=== PATIENT | female | born 1990 ===

== ENCOUNTER 2020-06-29 22:30 | Inpatient (IN) | payer SELFPAY ==
[2020-06-29] MEDS ORDERED: Lidocaine 1% 50 ML MDV INJECT PRN (22:43)
[2020-06-29] MEDS ORDERED: Tranexamic Acid 1,000 MG in Sodium Chloride 0.9% 100 ML IV PRN (22:43)
[2020-06-29] MEDS ORDERED: Water For Irrigation,Sterile 1,000 ML Container IRR PRN (22:43)
[2020-06-29] MEDS ORDERED: Misoprostol 200 MCG Tab PO PRN (22:43)
[2020-06-29] MEDS ORDERED: Terbutaline 1 MG/ML SDV SUBCUT PRN (22:43)
[2020-06-29] MEDS ORDERED: Carboprost Tromethamine 250 MCG/1 ML Amp IM PRN (22:43)
[2020-06-29] MEDS ORDERED: Sodium Chloride 0.9% 10 ML Syringe FLUSH PRN (22:43)
[2020-06-29] MEDS ORDERED: Methylergonovine 0.2 MG/1 ML Amp IM PRN (22:43)
[2020-06-29] MEDS ORDERED: Sodium Chloride 0.9% 2.5 ML Syringe FLUSH PRN (22:43)
[2020-06-29] MEDS ORDERED: Ondansetron 4 MG/2 ML SDV IVPUSH PRN (22:43)
[2020-06-29] MEDS ORDERED: Sodium Chloride 0.9% 10 ML SDV IV PRN (22:43)
[2020-06-29] MEDS ORDERED: Oxytocin/0.9 % Sodium Chloride 30 UNIT/500 ML BAG IV SCH ×2 (22:45)
[2020-06-29] MEDS: Lactated Ringers 1,000 ML IV SCH (23:00)
[2020-06-29] MEDS ORDERED: Misoprostol 25 MCG (1/4 of 100 MCG) Tab PO SCH (23:30)
[2020-06-29] MEDS ORDERED: Misoprostol 50 MCG (1/2 of 100 MCG) Tab PO SCH (23:30)
[2020-06-29] MEDS ORDERED: Misoprostol 25 MCG (1/4 of 100 MCG) Tab VAG PRN (23:30)
[2020-06-30] MEDS: Nalbuphine 10 MG/1 ML Vial IVPUSH PRN ×2 (01:38→05:41)
[2020-06-30] MEDS ORDERED: Misoprostol 25 MCG (1/4 of 100 MCG) Tab VAG PRN (03:00)
--- NOTE | 2020-06-30 05:11 | PCM.LDHP ---
L&D History of Present Illness - General Date of Service: 06/30/20 Admit Problem/Dx: Patient Status Order with Admit Dx/Problem 06/29/20 22:44 Patient Status [ADT] Routine Admission Diagnosis/Problem Admission Diagnosis/Problem Planned Source of Information: Patient History Limitations: Reports: No Limitations - History of Present Illness Pain Score: 8 Improves with: Reports: None Worsens with: Reports: None Associated Symptoms: Reports: N - Related Data Allergies/Adverse Reactions: Allergies Allergy/AdvReac Type Severity Reaction Status Date / Time wasp allergy Allergy Hives Uncoded 06/30/20 01:06 Home Medications: Home Meds Doxylamine Succinate/Vit B6 [Diclegis Dr 10-10 mg Tablet] 1 tab PO ASDIRECTED 06/27/20 [History] No122/Iron/Folic Acid [ Multi Tablet] 1 each PO DAILY 06/27/20 [History] Past Medical History Gastrointestinal History: Reports: Other (See Below) Other Gastrointestinal History: gastritis 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: - Infectious Disease History Infectious Disease History: Reports: Chicken Pox Social & Family History - Family History Family Medical History: Noncontributory - Tobacco Use Smoking Status *Q: Never Smoker Second Hand Smoke Exposure: No H&P Review of Systems - Review of Systems: Review Of Systems: See Below General: Reports: No Symptoms HEENT: Reports: No Symptoms Pulmonary: Reports: No Symptoms Cardiovascular: Reports: No Symptoms Gastrointestinal: Reports: No Symptoms Genitourinary: Reports: No Symptoms Musculoskeletal: Reports: No Symptoms Skin: Reports: No Symptoms Psychiatric: Reports: No Symptoms Neurological: Reports: No Symptoms Hematologic/Lymphatic: Reports: No Symptoms Immunologic: Reports: No Symptoms L&D Exam - Exam Exam: See Below - Vital Signs Weight: 81.193 kg - OB Specific Contraction Intensity: Moderate Movement: Active Heart Tones: Present Presentation: Vertex - Hanson Score Hanson Score Cervix Position: Anterior Hanson Score Effacement: >80% Hanson Score Dilation: 3-4 cm Hanson Score 's Station: -2 - Exam General: Alert, Oriented HEENT: PERRLA, Conjunctiva Clear, EACs Clear, EOMI, Hearing Intact, Mucosa Moist & [place], Nares Patent, Normal Nasal Septum, Posterior Pharynx Clear, TMs Clear Neck: Supple, Trachea Midline Lungs: Clear to Auscultation, Normal Respiratory Effort Cardiovascular: Regular Rate, Regular Rhythm GI/Abdominal Exam: Normal Bowel Sounds, Soft, Non-Tender, No Organomegaly, No Distention, No Abnormal Bruit, No Mass, Pelvis Stable Rectal Exam: Normal Exam, Normal Rectal Tone Genitourinary: Normal external exam, Normal bimanual exam, Normal speculum exam Back Exam: Normal Inspection, Full Range of Motion Extremities: Normal Inspection, Normal Range of Motion, Non-Tender, No Pedal Edema, Normal Capillary Refill Skin: Warm, Dry, Intact Neurological: Cranial Nerves Intact, Reflexes Equal Bilateral Psychiatric: Alert, Normal Affect, Normal Mood - Patient Data Lab Results Last 24 hrs: Laboratory Results - last 24 hr 06/29/20 06/29/20 06/29/20 Range/Units 22:38 22:58 22:58 WBC 10.26 (4.0-11.0) K/uL RBC 4.33 (4.30-5.90) M/uL Hgb 12.4 (12.0-16.0) g/dL Hct 36.8 (36.0-46.0) % MCV 85.0 (80.0-98.0) fL MCH 28.6 (27.0-32.0) pg MCHC 33.7 (31.0-37.0) g/dL RDW Std Deviation 40.8 (28.0-62.0) fl RDW Coeff of Mary 13 (11.0-15.0) % Plt Count 226 (150-400) K/uL MPV 10.80 (7.40-12.00) fL Nucleated RBC % 0.0 /100WBC Nucleated RBCs # 0 K/uL COVID-19 (NIGHAT) NEGATIVE (NEGATIVE) Blood Type A POSITIVE Antibody Screen NEGATIVE Result Diagrams: 06/29/20 22:58 Problem List Initiated/Reviewed/Updated: Yes Orders Last 24hrs: Active Orders 24 hr Category Date Time Status Patient Status [ADT] Routine ADT 06/29/20 22:44 Active Bedrest Bathroom Privileges [RC] ASDIRECTED Care 06/29/20 22:44 Active Communication Order [RC] ASDIRECTED Care 06/29/20 22:44 Active Communication Order [RC] ASDIRECTED Care 06/29/20 22:44 Active Communication Order [RC] ASDIRECTED Care 06/29/20 22:44 Active Heart Tones [RC] CONTINUOUS Care 06/29/20 22:44 Active Non Stress Test [RC] PER UNIT ROUTINE Care 06/29/20 22:44 Active May Shower [RC] ASDIRECTED Care 06/29/20 22:44 Active Notify Provider [RC] PRN Care 06/29/20 22:44 Active Notify Provider [RC] PRN Care 06/29/20 22:44 Active Notify Provider [RC] PRN Care 06/29/20 22:44 Active Notify Provider [RC] STAT Care 06/29/20 22:44 Active Oxygen Therapy [RC] ASDIRECTED Care 06/29/20 22:44 Active Up ad Cathy [RC] ASDIRECTED Care 06/29/20 22:44 Active Vaginal Exam [RC] PRN Care 06/29/20 22:44 Active Vaginal Exam [RC] PRN Care 06/29/20 22:44 Active Vital Signs [RC] PER UNIT ROUTINE Care 06/29/20 22:44 Active Vital Signs [RC] PER UNIT ROUTINE Care 06/29/20 22:44 Active Regular Diet [DIET] Diet 06/30/20 Breakfast Active RPR (SYPHILIS SERO) W/ RFLX [REF] Routine Lab 06/29/20 22:58 Received Carboprost Tromethamine [Hemabate DS] Med 06/29/20 22:43 Active 250 mcg IM ASDIRECTED PRN Lactated Ringers [Ringers, Lactated] 1,000 ml Med 06/29/20 22:45 Active IV ASDIRECTED Lidocaine 1% [Xylocaine 1%] Med 06/29/20 22:43 Active 50 ml INJECT ONETIME PRN Methylergonovine [Methergine] Med 06/29/20 22:43 Active 0.2 mg IM ASDIRECTED PRN Nalbuphine [Nubain] Med 06/29/20 22:43 Active 10 mg IVPUSH Q1H PRN Ondansetron [Zofran] Med 06/29/20 22:43 Active 4 mg IVPUSH Q6H PRN Oxytocin/0.9 % Sodium Chloride [Oxytocin 30 Unit/500 ML Med 06/29/20 22:45 Active -NS] 30 unit in 500 ml IV TITRATE Oxytocin/0.9 % Sodium Chloride [Oxytocin 30 Unit/500 ML Med 06/29/20 22:45 Active -NS] 30 unit in 500 ml IV TITRATE Sodium Chloride 0.9% [Normal Saline] Med 06/29/20 22:43 Active 10 ml IV ASDIRECTED PRN Sodium Chloride 0.9% [Saline Flush] Med 06/29/20 22:43 Active 10 ml FLUSH ASDIRECTED PRN Sodium Chloride 0.9% [Saline Flush] Med 06/29/20 22:43 Active 2.5 ml FLUSH ASDIRECTED PRN Terbutaline [Brethine] Med 06/29/20 22:43 Active 0.25 mg SUBCUT ASDIRECTED PRN Tranexamic Acid [Cyklokapron] 1,000 mg Med 06/29/20 22:43 Active Sodium Chloride 0.9% [Normal Saline] 100 ml IV ONETIME Water For Irrigation,Sterile [Sterile Water for Med 06/29/20 22:43 Active Irrigation] 1,000 ml IRR ASDIRECTED PRN miSOPROStoL [Cytotec] Med 06/29/20 22:43 Active 200 mcg PO ONETIME PRN miSOPROStoL [Cytotec] Med 06/29/20 23:30 Active 25 mcg PO Q4H miSOPROStoL [Cytotec] Med 06/29/20 23:30 Active 25 mcg VAG ONETIME PRN miSOPROStoL [Cytotec] Med 06/30/20 03:00 Active 25 mcg VAG Q4H PRN Scalp Electrode [WOMSER] Per Unit Routine Oth 06/29/20 22:44 Ordered Medication Administration Instruction [OM.PC] Q3H Oth 06/29/20 22:45 Ordered Peripheral IV Insertion Adult [OM.PC] Routine Oth 06/29/20 22:44 Ordered Resuscitation Status Routine Resus Stat 06/29/20 22:43 Ordered Medication Orders Carboprost Tromethamine (Hemabate Ds) 250 mcg IM ASDIRECTED PRN PRN Reason: Post Hemorrhage Oxytocin/Sodium Chloride (Oxytocin 30 Unit/500 Ml-Ns) 30 unit in 500 mls @ 2 mls/hr IV TITRATE RISSA; Protocol Lactated Ringer's (Ringers, Lactated) 1,000 mls @ 150 mls/hr IV ASDIRECTED RISSA Last Infusion: 06/29/20 23:59 Dose: 0 mls/hr Documented by: Admin: 06/29/20 23:00 Dose: 500 mls/hr Documented by: VIVIENNE Oxytocin/Sodium Chloride (Oxytocin 30 Unit/500 Ml-Ns) 30 unit in 500 mls @ 500 mls/hr IV TITRATE REPLACED BY [facility] Tranexamic Acid 1,000 mg/ (Sodium Chloride) 110 mls @ 660 mls/hr IV ONETIME PRN PRN Reason: Bleeding Lidocaine HCl (Xylocaine 1%) 50 ml INJECT ONETIME PRN PRN Reason: Laceration repair Methylergonovine Maleate (Methergine) 0.2 mg IM ASDIRECTED PRN PRN Reason: Post Hemorrhage Misoprostol (Cytotec) 25 mcg VAG ONETIME PRN PRN Reason: Cervical Ripening Last Admin: 06/29/20 23:37 Dose: 25 mcg Documented by: VIVIENNE Misoprostol (Cytotec) 25 mcg VAG Q4H PRN PRN Reason: Cervical Ripening Misoprostol (Cytotec) 200 mcg PO ONETIME PRN PRN Reason: Post Hemorrhage Misoprostol (Cytotec) 25 mcg PO Q4H REPLACED BY [facility] Last Admin: 06/29/20 23:32 Dose: 25 mcg Documented by: VIVIENNE Nalbuphine HCl (Nubain) 10 mg IVPUSH Q1H PRN PRN Reason: Pain (severe 7-10) Last Admin: 06/30/20 01:38 Dose: 10 mg Documented by: VIVIENNE Ondansetron HCl (Zofran) 4 mg IVPUSH Q6H PRN PRN Reason: Nausea/Vomiting Sodium Chloride (Saline Flush) 10 ml FLUSH ASDIRECTED PRN PRN Reason: Keep Vein Open Sodium Chloride (Saline Flush) 2.5 ml FLUSH ASDIRECTED PRN PRN Reason: Keep Vein Open Sodium Chloride (Normal Saline) 10 ml IV ASDIRECTED PRN PRN Reason: IV Use Sterile Water (Sterile Water For Irrigation) 1,000 ml IRR ASDIRECTED PRN PRN Reason: delivery Terbutaline Sulfate (Brethine) 0.25 mg SUBCUT ASDIRECTED PRN PRN Reason: Tacysystole
[2020-06-30] MEDS ORDERED: Ropivacaine HCl/PF 100 ML ONE (07:30)
[2020-06-30] MEDS ORDERED: fentaNYL 100 MCG/2 ML SDV ONE (07:30)
--- NOTE | 2020-06-30 08:17 | PCM.PREANE ---
Preanesthetic Assessment - Procedure Proposed Procedure: BROOK - Anesthesia/Transfusion/Family Hx Anesthesia History: No Prior Anesthesia Family History of Anesthesia Reaction: No Transfusion History: No Prior Transfusion(s) Anesthesia/Transfusion Comment: Pt and s/o report patient has never had anesthesia - Review of Systems General: No Symptoms Pulmonary: No Symptoms Cardiovascular: No Symptoms Gastrointestinal: No Symptoms Neurological: No Symptoms Other: Reports: None - Physical Assessment NPO Status Date: 06/30/20 (Clear liquids okay) NPO Status Time: 07:15 Height: 1.65 m Weight: 81.193 kg ASA Class: 2 Mental Status: Alert & Oriented x3 Dentition: Reports: Normal Dentition Thyro-Mental Finger Breadths: 3 Mouth Opening Finger Breadths: 4 ROM/Head Extension: Full Lungs: Normal Respiratory Effort Cardiovascular: Regular Rate, Regular Rhythm - Lab Values: Laboratory Last Values WBC 10.26 K/uL (4.0-11.0) 06/29/20 22:58 RBC 4.33 M/uL (4.30-5.90) 06/29/20 22:58 Hgb 12.4 g/dL (12.0-16.0) 06/29/20 22:58 Hct 36.8 % (36.0-46.0) 06/29/20 22:58 MCV 85.0 fL (80.0-98.0) 06/29/20 22:58 MCH 28.6 pg (27.0-32.0) 06/29/20 22:58 MCHC 33.7 g/dL (31.0-37.0) 06/29/20 22:58 RDW Std Deviation 40.8 fl (28.0-62.0) 06/29/20 22:58 RDW Coeff of Mary 13 % (11.0-15.0) 06/29/20 22:58 Plt Count 226 K/uL (150-400) 06/29/20 22:58 MPV 10.80 fL (7.40-12.00) 06/29/20 22:58 Nucleated RBC % 0.0 /100WBC 06/29/20 22:58 Nucleated RBCs # 0 K/uL 06/29/20 22:58 COVID-19 (NIGHAT) NEGATIVE (NEGATIVE) 06/29/20 22:38 Blood Type A POSITIVE 06/29/20 22:58 Antibody Screen NEGATIVE 06/29/20 22:58 - Allergies Allergies/Adverse Reactions: Allergies Allergy/AdvReac Type Severity Reaction Status Date / Time wasp allergy Allergy Hives Uncoded 06/30/20 01:06 - Acknowledgements Anesthesia Type Planned: Epidural (Risks/benefits/alternatives/procedure discussed with patient and S.O.. S.O. acted as refueling ramp attendant, and RECORD FILING CLERK with limited finnish verified that patient felt comfortable with this. All questions answered and concerns addressed prior to procedure. 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: - Infectious Disease History Infectious Disease History: Reports: Chicken Pox - SUBSTANCE USE Smoking Status *Q: Never Smoker Second Hand Smoke Exposure: No - HOME MEDS Home Medications: Home Meds Doxylamine Succinate/Vit B6 [Dicwesleygis Dr 10-10 mg Tablet] 1 tab PO ASDIRECTED 06/27/20 [History] No122/Iron/Folic Acid [ Multi Tablet] 1 each PO DAILY 06/27/20 [History] - CURRENT (IN HOUSE) MEDS Current Meds: Current Medications Carboprost Tromethamine (Hemabate Ds) 250 mcg IM ASDIRECTED PRN PRN Reason: Post Hemorrhage Oxytocin/Sodium Chloride (Oxytocin 30 Unit/500 Ml-Ns) 30 unit in 500 mls @ 2 mls/hr IV TITRATE RISSA; Protocol Lactated Ringer's (Ringers, Lactated) 1,000 mls @ 150 mls/hr IV ASDIRECTED RISSA Last Infusion: 06/29/20 23:59 Dose: 0 mls/hr Documented by: Oxytocin/Sodium Chloride (Oxytocin 30 Unit/500 Ml-Ns) 30 unit in 500 mls @ 500 mls/hr IV TITRATE RISSA Tranexamic Acid 1,000 mg/ (Sodium Chloride) 110 mls @ 660 mls/hr IV ONETIME PRN PRN Reason: Bleeding Lidocaine HCl (Xylocaine 1%) 50 ml INJECT ONETIME PRN PRN Reason: Laceration repair Methylergonovine Maleate (Methergine) 0.2 mg IM ASDIRECTED PRN PRN Reason: Post Hemorrhage Misoprostol (Cytotec) 25 mcg VAG ONETIME PRN PRN Reason: Cervical Ripening Last Admin: 06/29/20 23:37 Dose: 25 mcg Documented by: Misoprostol (Cytotec) 25 mcg VAG Q4H PRN PRN Reason: Cervical Ripening Misoprostol (Cytotec) 200 mcg PO ONETIME PRN PRN Reason: Post Hemorrhage Misoprostol (Cytotec) 25 mcg PO Q4H RISSA Last Admin: 06/29/20 23:32 Dose: 25 mcg Documented by: Ondansetron HCl (Zofran) 4 mg IVPUSH Q6H PRN PRN Reason: Nausea/Vomiting Sodium Chloride (Saline Flush) 10 ml FLUSH ASDIRECTED PRN PRN Reason: Keep Vein Open Sodium Chloride (Saline Flush) 2.5 ml FLUSH ASDIRECTED PRN PRN Reason: Keep Vein Open Sodium Chloride (Normal Saline) 10 ml IV ASDIRECTED PRN PRN Reason: IV Use Sterile Water (Sterile Water For Irrigation) 1,000 ml IRR ASDIRECTED PRN PRN Reason: delivery Terbutaline Sulfate (Brethine) 0.25 mg SUBCUT ASDIRECTED PRN PRN Reason: Tacysystole Discontinued Medications Fentanyl (Sublimaze) Confirm Administered Dose 200 mcg .ROUTE .STK-MED ONE Stop: 06/30/20 07:31 Ropivacaine (Naropin 0.2%) Confirm Administered Dose 100 mls @ as directed .ROUTE .STK-MED ONE Stop: 06/30/20 07:31 Nalbuphine HCl (Nubain) 10 mg IVPUSH Q1H PRN PRN Reason: Pain (severe 7-10) Last Admin: 06/30/20 05:41 Dose: 10 mg Documented by:
[2020-06-30] MEDS: Lactated Ringers 1,000 ML IV SCH ×2 (08:24→10:15)
--- NOTE | 2020-06-30 08:38 | PCM.SN.2 ---
- Free Text/Narrative Note: 06/30/20 @ 0825- Bedside to check on patient and re-assess epidural dermatome level. Pt resting comfortably, level remains T6. BP soft (SBP 80's, MAP 45-50). Pt tilted left, cuff on right arm. HR 60-70's. HR stable per RN. Verbal order for additional 500ml LR bolus. SENIOR SCIENTIST pulled and administered 100mcg phenylephrine IV. BP improving. RN instructed to notify SENIOR SCIENTIST if hypotension recurs or if pt becomes bradycardic.
--- NOTE | 2020-06-30 08:51 | PCM.SN.2 ---
- Free Text/Narrative Note: Re-assessed 06/30/20 @ 0844. Continued to be hypotensive. Treated with 200mcg phenylephrine IV (fluid bolus still infusing). BP rectified (SBP 120's). Remains otherwise asymptomatic. RN instructed to continue Q3min BP measurements, and report hypotension <90 SBP or MAP <55 for >2 measurements.
--- NOTE | 2020-06-30 13:26 | PCM.DEL ---
L & D Note - General Info Date of Service: 06/30/20 Mother's Due Date: 06/22/20 - Delivery Note Labor: Augmented by Oxytocin Cervical Ripening Method: Misoprostil Delivery Outcome: Livebirth Delivery Method: Spontaneous Vaginal Delivery-Single Presentation: Vertex Nuchal Cord: None Anesthesia Type: Epidural Amniotic Fluid Description: Meconium Stained Episiotomy Type: None Laceration: 1st Degree, Labial (right labial, repaired), Perineal (repaired) Suture type: Vicryl Suture size: 3-0 Placenta: Intact, Spontaneous Cord: 3 Vessels Estimated Blood Loss: 500 Resuscitation Needed: No Score 1 min: 9 Score 5 min: 9 Second Stage Interventions: Reports: Second Nurse Assessed Progress of Descent, Second Nurse Reviewed Contraction Pattern, Second Nurse Reviewed Heart Tones, Encouragement Given, Pushing Effectively, Pushing, Pulls Own Legs Back Delivery Comments (Free Text/Narrative):: viable female; epidural for pain relief; head delivered with good pushing, shoulders followed easily after; baby to mom's abdomen skin to skin for assessment; APGARs 9/9; weight pending; placenta delivered grossly intact, pleitez; 3VC; EBL 500 mL; pitocin to IVF; right labial laceration repaired with 3-0 vicryl; 1st degree perineal laceration repaired with 3-0 vicryl; mom and baby left in stable condition with nurse at bedside for assessment - General Info Date of Service: 06/30/20 Admission Dx/Problem (Free Text): Patient Status Order with Admit Dx/Problem 06/29/20 22:44 Patient Status [ADT] Routine Admission Diagnosis/Problem Admission Diagnosis/Problem Planned Functional Status: Reports: Pain Controlled - Review of Systems General: Reports: No Symptoms HEENT: Reports: No Symptoms Pulmonary: Reports: No Symptoms Cardiovascular: Reports: No Symptoms Gastrointestinal: Reports: No Symptoms Genitourinary: Reports: No Symptoms Musculoskeletal: Reports: No Symptoms Skin: Reports: No Symptoms Neurological: Reports: No Symptoms Psychiatric: Reports: No Symptoms - Patient Data Weight - Most Recent: 179 lb Lab Results Last 24 Hours: Laboratory Results - last 24 hr 06/29/20 06/29/20 06/29/20 Range/Units 22:38 22:58 22:58 WBC 10.26 (4.0-11.0) K/uL RBC 4.33 (4.30-5.90) M/uL Hgb 12.4 (12.0-16.0) g/dL Hct 36.8 (36.0-46.0) % MCV 85.0 (80.0-98.0) fL MCH 28.6 (27.0-32.0) pg MCHC 33.7 (31.0-37.0) g/dL RDW Std Deviation 40.8 (28.0-62.0) fl RDW Coeff of Mary 13 (11.0-15.0) % Plt Count 226 (150-400) K/uL MPV 10.80 (7.40-12.00) fL Nucleated RBC % 0.0 /100WBC Nucleated RBCs # 0 K/uL COVID-19 (NIGHAT) NEGATIVE (NEGATIVE) Blood Type A POSITIVE Antibody Screen NEGATIVE Med Orders - Current: Current Medications Carboprost Tromethamine (Hemabate Ds) 250 mcg IM ASDIRECTED PRN PRN Reason: Post Hemorrhage Oxytocin/Sodium Chloride (Oxytocin 30 Unit/500 Ml-Ns) 30 unit in 500 mls @ 2 mls/hr IV TITRATE RISSA; Protocol Last Titration: 06/30/20 12:04 Dose: 4 munits/min, 4 mls/hr Documented by: Lactated Ringer's (Ringers, Lactated) 1,000 mls @ 150 mls/hr IV ASDIRECTED RISSA Last Admin: 06/30/20 10:15 Dose: 999 mls/hr Documented by: Oxytocin/Sodium Chloride (Oxytocin 30 Unit/500 Ml-Ns) 30 unit in 500 mls @ 500 mls/hr IV TITRATE RISSA Tranexamic Acid 1,000 mg/ (Sodium Chloride) 110 mls @ 660 mls/hr IV ONETIME PRN PRN Reason: Bleeding Lidocaine HCl (Xylocaine 1%) 50 ml INJECT ONETIME PRN PRN Reason: Laceration repair Methylergonovine Maleate (Methergine) 0.2 mg IM ASDIRECTED PRN PRN Reason: Post Hemorrhage Misoprostol (Cytotec) 25 mcg VAG ONETIME PRN PRN Reason: Cervical Ripening Last Admin: 06/29/20 23:37 Dose: 25 mcg Documented by: Misoprostol (Cytotec) 25 mcg VAG Q4H PRN PRN Reason: Cervical Ripening Misoprostol (Cytotec) 200 mcg PO ONETIME PRN PRN Reason: Post Hemorrhage Misoprostol (Cytotec) 25 mcg PO Q4H RISSA Last Admin: 06/29/20 23:32 Dose: 25 mcg Documented by: Ondansetron HCl (Zofran) 4 mg IVPUSH Q6H PRN PRN Reason: Nausea/Vomiting Sodium Chloride (Saline Flush) 10 ml FLUSH ASDIRECTED PRN PRN Reason: Keep Vein Open Sodium Chloride (Saline Flush) 2.5 ml FLUSH ASDIRECTED PRN PRN Reason: Keep Vein Open Sodium Chloride (Normal Saline) 10 ml IV ASDIRECTED PRN PRN Reason: IV Use Sterile Water (Sterile Water For Irrigation) 1,000 ml IRR ASDIRECTED PRN PRN Reason: delivery Terbutaline Sulfate (Brethine) 0.25 mg SUBCUT ASDIRECTED PRN PRN Reason: Tacysystole Discontinued Medications Fentanyl (Sublimaze) Confirm Administered Dose 200 mcg .ROUTE .STK-MED ONE Stop: 06/30/20 07:31 Ropivacaine (Naropin 0.2%) Confirm Administered Dose 100 mls @ as directed .ROUTE .STK-MED ONE Stop: 06/30/20 07:31 Nalbuphine HCl (Nubain) 10 mg IVPUSH Q1H PRN PRN Reason: Pain (severe 7-10) Last Admin: 06/30/20 05:41 Dose: 10 mg Documented by: - Exam General: Alert, Oriented, Cooperative, No Acute Distress Lungs: Normal Respiratory Effort Cardiovascular: Regular Rate, Regular Rhythm GI/Abdominal Exam: Soft, Non-Tender (Female) Exam: Normal External Exam Back Exam: Normal Inspection Extremities: Normal Inspection, Non-Tender, No Pedal Edema, Normal Capillary Refill Skin: Warm, Dry, Intact Wound/Incisions: Healing Well Neurological: No New Focal Deficit, Normal Speech, Normal Tone Psy/Mental Status: Alert, Normal Affect, Normal Mood - Problem List & Annotations (1) (spontaneous vaginal delivery) SNOMED Code(s): 853320691 Code(s): O80 - ENCOUNTER FOR FULL-TERM UNCOMPLICATED DELIVERY Status: Acute Priority: High Current Visit: Yes - Problem List Review Problem List Initiated/Reviewed/Updated: Yes - Plan Plan:: Delivery A: viable female; epidural for pain relief; head delivered with good pushing, shoulders followed easily after; APGARs 9/9; weight pending; placenta delivered grossly intact, pleitez; 3VC; EBL 500 mL; pitocin to IVF; right labial laceration repaired with 3-0 vicryl; 1st degree perineal laceration repaired with 3-0 vicryl; mom and baby left in stable condition with nurse at bedside for assessment P: Routine plan of care. Dr. Bishop updated.
[2020-06-30] MEDS ORDERED: Benzocaine/Menthol 20%-0.5% Spray 78 GM Cannister TOP PRN (13:29)
[2020-06-30] MEDS ORDERED: Acetaminophen 500 MG Tab PO PRN ×2 (13:29)
[2020-06-30] MEDS ORDERED: Bisacodyl 10 MG Supp RECTAL PRN (13:29)
[2020-06-30] MEDS ORDERED: Docusate Sodium 100 MG Cap PO PRN (13:29)
[2020-06-30] MEDS ORDERED: oxyCODONE 5 MG Tab PO PRN (13:29)
[2020-06-30] MEDS ORDERED: Ibuprofen 400 MG Tab PO PRN (13:29)
[2020-06-30] MEDS ORDERED: Witch Hazel Medicated Pads 40/Jar TOP PRN (13:29)
[2020-06-30] MEDS ORDERED: Lanolin 100% Cream 7 GM Tube TOP PRN (13:29)
[2020-06-30] MEDS: Ibuprofen 800 MG Tab PO PRN (16:42)
[2020-07-01] MEDS: Ibuprofen 800 MG Tab PO PRN (02:26)
--- NOTE | 2020-07-01 07:29 | PCM48HPAN ---
Post Anesthesia Note - EVALUATION WITHIN 48HRS OF ANESTHETIC Vital Signs in Normal Range: Yes Patient Participated in Evaluation: Yes Respiratory Function Stable: Yes Airway Patent: Yes Cardiovascular Function Stable: Yes Hydration Status Stable: Yes Pain Control Satisfactory: Yes Nausea and Vomiting Control Satisfactory: Yes Mental Status Recovered: Yes Vital Signs: Last Vital Signs Temp 35.9 C L 07/01/20 06:00 Pulse 84 07/01/20 06:00 Resp 16 07/01/20 06:00 BP 102/56 L 07/01/20 06:00 Pulse Ox 98 07/01/20 06:00 - COMMENTS/OBSERVATIONS Free Text/Narrative:: patient is up and showered
--- NOTE | 2020-07-01 08:01 | PCM.DCSUM1 ---
Discharge Summary - Hospital Course Free Text/Narrative:: Discharge home with baby. Follow up in the clinic in 6 weeks for routine plan of care. Diagnosis: Stroke: No Modified Debra Scale: No Symptoms at All Modified Menard Scale Score: 0 - Discharge Data Discharge Date: 07/01/20 Discharge Disposition: Home, Self-Care 01 Condition: Good - Referral to Home Health Primary Care Physician: PCP None - Discharge Diagnosis/Problem(s) (1) (spontaneous vaginal delivery) SNOMED Code(s): 469609538 ICD Code: O80 - ENCOUNTER FOR FULL-TERM UNCOMPLICATED DELIVERY Status: Acute Priority: High Current Visit: Yes - Patient Instructions Diet: Regular Diet as Tolerated, Drink 8-10+ Glasses/Day Activity: As Tolerated, No Strenuous Activities, Rest and Relax Today Driving: May Drive Today Showering/Bathing: May Shower Wound/Incision Care: Keep Operative Site/Wound Site Clean and Dry Notify Provider of: Fever, Increased Pain, Swelling and Redness, Drainage, Nausea and/or Vomiting - Discharge Plan *PRESCRIPTION DRUG MONITORING PROGRAM REVIEWED*: Not Applicable *COPY OF PRESCRIPTION DRUG MONITORING REPORT IN PATIENT RODRÍGUEZ: Not Applicable Prescriptions/Med Rec: Ibuprofen [Motrin] 800 mg PO Q6H PRN #90 tablet PRN Reason: Pain Home Medications: Home Meds Doxylamine Succinate/Vit B6 [Padminilegis Dr 10-10 mg Tablet] 1 tab PO ASDIRECTED 06/27/20 [History] No122/Iron/Folic Acid [ Multi Tablet] 1 each PO DAILY 06/27/20 [History] Ibuprofen [Motrin] 800 mg PO Q6H PRN #90 tablet 07/01/20 [Rx] Referrals: [facility] [Outside] lEizabeth Mcdaniel, STEPHANIEM, HOSPITAL SECURITY OFFICER [Mid-] - 08/11/20 2:00 pm - Discharge Summary/Plan Comment DC Time >30 min.: Yes - General Info Date of Service: 07/01/20 Admission Dx/Problem (Free Text: Patient Status Order with Admit Dx/Problem 06/29/20 22:44 Patient Status [ADT] Routine Admission Diagnosis/Problem Admission Diagnosis/Problem Planned Functional Status: Reports: Pain Controlled, Tolerating Diet, Ambulating, Urinating - Review of Systems General: Reports: No Symptoms HEENT: Reports: No Symptoms Pulmonary: Reports: No Symptoms Cardiovascular: Reports: No Symptoms Gastrointestinal: Reports: No Symptoms Genitourinary: Reports: No Symptoms Musculoskeletal: Reports: No Symptoms Skin: Reports: No Symptoms Neurological: Reports: No Symptoms Psychiatric: Reports: No Symptoms - Patient Data Vitals - Most Recent: Last Vital Signs Temp 96.6 F L 07/01/20 06:00 Pulse 84 07/01/20 06:00 Resp 16 07/01/20 06:00 BP 102/56 L 07/01/20 06:00 Pulse Ox 98 07/01/20 06:00 Weight - Most Recent: 179 lb Lab Results - Last 24 hrs: Laboratory Results - last 24 hr 07/01/20 Range/Units 06:18 Hgb 9.9 L (12.0-16.0) g/dL Hct 29.6 L (36.0-46.0) % Med Orders - Current: Current Medications Acetaminophen (Tylenol Extra Strength) 500 mg PO Q4H PRN PRN Reason: Pain Acetaminophen (Tylenol Extra Strength) 1,000 mg PO Q4H PRN PRN Reason: Pain Last Admin: 06/30/20 16:41 Dose: 1,000 mg Documented by: Benzocaine/Menthol (Dermoplast Pain Relief 20%-0.5% [place]) 78 gm TOP ASDIRECTED PRN PRN Reason: Perineal Comfort Measure Last Admin: 06/30/20 16:45 Dose: 1 cap Documented by: Bisacodyl (Dulcolax) 10 mg RECTAL ONETIME PRN PRN Reason: Constipation Docusate Sodium (Colace) 100 mg PO BID PRN PRN Reason: Constipation Last Admin: 06/30/20 22:20 Dose: 100 mg Documented by: Emollient Ointment (Lansinoh Hpa) 0 gm TOP ASDIRECTED PRN PRN Reason: Sore Nipples Last Admin: 06/30/20 16:43 Dose: 1 tube Documented by: Ibuprofen (Motrin) 400 mg PO Q4H PRN PRN Reason: Pain Ibuprofen (Motrin) 800 mg PO Q6H PRN PRN Reason: Pain Last Admin: 07/01/20 02:26 Dose: 800 mg Documented by: Oxycodone HCl (Oxycodone) 5 mg PO Q2H PRN PRN Reason: Pain Witch Michelle (Tucks) 1 pad TOP ASDIRECTED PRN PRN Reason: comfort care Last Admin: 06/30/20 16:44 Dose: 1 tub Documented by: Discontinued Medications Carboprost Tromethamine (Hemabate Ds) 250 mcg IM ASDIRECTED PRN PRN Reason: Post Hemorrhage Fentanyl (Sublimaze) Confirm Administered Dose 200 mcg .ROUTE .TherOx-Gema ONE Stop: 06/30/20 07:31 Last Admin: 06/30/20 21:20 Dose: Not Given Documented by: Oxytocin/Sodium Chloride (Oxytocin 30 Unit/500 Ml-Ns) 30 unit in 500 mls @ 2 m ls/hr IV TITRATE RISSA; Protocol Last Titration: 06/30/20 12:04 Dose: 4 munits/min, 4 mls/hr Documented by: Lactated Ringer's (Ringers, Lactated) 1,000 mls @ 150 mls/hr IV ASDIRECTED RISSA Last Admin: 06/30/20 10:15 Dose: 999 mls/hr Documented by: Oxytocin/Sodium Chloride (Oxytocin 30 Unit/500 Ml-Ns) 30 unit in 500 mls @ 500 mls/hr IV TITRATE RISSA Tranexamic Acid 1,000 mg/ (Sodium Chloride) 110 mls @ 660 mls/hr IV ONETIME PRN PRN Reason: Bleeding Ropivacaine (Naropin 0.2%) Confirm Administered Dose 100 mls @ as directed .ROUTE .STKueski-Gema ONE Stop: 06/30/20 07:31 Lidocaine HCl (Xylocaine 1%) 50 ml INJECT ONETIME PRN PRN Reason: Laceration repair Methylergonovine Maleate (Methergine) 0.2 mg IM ASDIRECTED PRN PRN Reason: Post Hemorrhage Misoprostol (Cytotec) 25 mcg VAG ONETIME PRN PRN Reason: Cervical Ripening Last Admin: 06/29/20 23:37 Dose: 25 mcg Documented by: Misoprostol (Cytotec) 25 mcg VAG Q4H PRN PRN Reason: Cervical Ripening Misoprostol (Cytotec) 200 mcg PO ONETIME PRN PRN Reason: Post Hemorrhage Misoprostol (Cytotec) 25 mcg PO Q4H RISSA Last Admin: 06/29/20 23:32 Dose: 25 mcg Documented by: Nalbuphine HCl (Nubain) 10 mg IVPUSH Q1H PRN PRN Reason: Pain (severe 7-10) Last Admin: 06/30/20 05:41 Dose: 10 mg Documented by: Ondansetron HCl (Zofran) 4 mg IVPUSH Q6H PRN PRN Reason: Nausea/Vomiting Sodium Chloride (Saline Flush) 10 ml FLUSH ASDIRECTED PRN PRN Reason: Keep Vein Open Sodium Chloride (Saline Flush) 2.5 ml FLUSH ASDIRECTED PRN PRN Reason: Keep Vein Open Sodium Chloride (Normal Saline) 10 ml IV ASDIRECTED PRN PRN Reason: IV Use Sterile Water (Sterile Water For Irrigation) 1,000 ml IRR ASDIRECTED PRN PRN Reason: delivery Terbutaline Sulfate (Brethine) 0.25 mg SUBCUT ASDIRECTED PRN PRN Reason: Tacysystole - Exam General: Reports: Alert, Oriented, Cooperative, No Acute Distress Lungs: Reports: Normal Respiratory Effort Cardiovascular: Reports: Regular Rate, Regular Rhythm GI/Abdominal Exam: Soft, Non-Tender (Female) Exam: Deferred Rectal (Female) Exam: Deferred Back Exam: Reports: Normal Inspection, Full Range of Motion Extremities: Normal Inspection, Normal Range of Motion, Non-Tender, Normal Capillary Refill Skin: Reports: Warm, Dry, Intact Wound/Incisions: Reports: Healing Well Neurological: Reports: Normal Gait, Normal Speech Psy/Mental Status: Reports: Alert, Normal Affect, Normal Mood
== END 2020-07-01 15:50 | disposition home or self-care (01) | DRG 807 ==
LOC: MW.OB 22:30 → MW.OBCHECK 22:30 → MW.OB 06-30 00:01 → MW.OBCHECK 06-30 00:01 → OBSVTOIN 06-30 12:45 → MW.OB 06-30 18:00
PROVIDERS: ADMIT Obstetrics & Gynecology; ATTEND Obstetrics & Gynecology
PROC: 10E0XZZ Delivery of Products of Conception, External Approach (ICD-10-PCS; principal; 2020-06-30)
PROC: 10907ZC Drainage of Amniotic Fluid, Therapeutic from Products of Conception, Via Natural or Artificial Opening (ICD-10-PCS; 2020-06-30)
PROC: 0HQ9XZZ Repair Perineum Skin, External Approach (ICD-10-PCS; 2020-06-30)
PROC: 0UQMXZZ Repair Vulva, External Approach (ICD-10-PCS; 2020-06-30)
PROC: 3E0R3BZ Introduction of Anesthetic Agent into Spinal Canal, Percutaneous Approach (ICD-10-PCS; 2020-06-30)
PROC: 00HU33Z Insertion of Infusion Device into Spinal Canal, Percutaneous Approach (ICD-10-PCS; 2020-06-30)
PROC: 3E0P7VZ Introduction of Hormone into Female Reproductive, Via Natural or Artificial Opening (ICD-10-PCS; 2020-06-30)
DX: O48.0 Post-term pregnancy (principal); Z37.0 Single live birth; O77.0 Labor and delivery complicated by meconium in amniotic fluid; O70.0 First degree perineal laceration during delivery; O26.53 Maternal hypotension syndrome, third trimester; Z11.59 Encounter for screening for other viral diseases; Z3A.41 41 weeks gestation of pregnancy
CPT/HCPCS: 36415; 51702; 59025; 59409; 85014; 85018; 85027; 86592; 86850; 86900; 86901; A9270-GY; J2300; J2590; J7120; U0002

== ENCOUNTER 2023-09-22 02:22 | Inpatient (IN) | payer SELFPAY ==
[2023-09-22] MEDS ORDERED: Terbutaline 1 MG/ML SDV SUBCUT PRN (13:51)
[2023-09-22] MEDS ORDERED: Ondansetron 4 MG/2 ML SDV IVPUSH PRN (13:51)
[2023-09-22] MEDS ORDERED: Nalbuphine 10 MG/0.5 ML Syringe IVPUSH PRN (13:51)
[2023-09-22] MEDS ORDERED: Methylergonovine 0.2 MG/1 ML Amp IM PRN (13:51)
[2023-09-22] MEDS ORDERED: Sodium Chloride 0.9% 20 ML SDV IV PRN (13:51)
[2023-09-22] MEDS ORDERED: Misoprostol 200 MCG Tab PO PRN (13:51)
[2023-09-22] MEDS ORDERED: Water For Irrigation,Sterile 1,000 ML Container IRR PRN (13:51)
[2023-09-22] MEDS ORDERED: Butorphanol 1 MG/ML SDV IVPUSH PRN (13:51)
[2023-09-22] MEDS ORDERED: Misoprostol 25 MCG (1/4 of 100 MCG) Tab VAG PRN ×2 (13:51)
[2023-09-22] MEDS ORDERED: Tranexamic Acid IN NACL,ISO-OS 1,000 MG in Premix Bag 1 BAG IV PRN ×2 (13:51)
[2023-09-22] MEDS ORDERED: Misoprostol 25 MCG (1/4 of 100 MCG) Tab PO PRN ×2 (13:51)
[2023-09-22] MEDS ORDERED: Sodium Chloride 0.9% 10 ML Syringe FLUSH PRN (13:51)
[2023-09-22] MEDS ORDERED: Carboprost Tromethamine 250 MCG/1 mL Vial IM PRN (13:51)
[2023-09-22] MEDS ORDERED: Sodium Chloride 0.9% 2.5 ML Syringe FLUSH PRN (13:51)
[2023-09-22] MEDS ORDERED: Lidocaine 1% 50 ML MDV INJECT PRN (13:51)
[2023-09-22] MEDS ORDERED: Oxytocin/0.9 % Sodium Chloride 30 UNIT/500 ML BAG IV SCH ×2 (14:00)
[2023-09-22] MEDS ORDERED: Lactated Ringers 1,000 ML IV SCH (14:00)
[2023-09-22 14:10] LABS: HEMATOCRIT 38.4 % (37.0-47.0); HEMOGLOBIN 13.1 g/dL (12.0-16.0); MEAN CORPUSCULAR HEMOGLOBIN 28.5 pg (28.0-32.0); MEAN CORPUSCULAR HGB CONC 34.1 g/dL (32.0-36.0); MEAN CORPUSCULAR VOLUME 83.7 fL (83.0-99.0); MEAN PLATELET VOLUME 10.7 fL (9.4-12.3); PLATELET COUNT,PLT 214 K/uL (150-400); RED BLOOD CELL COUNT 4.59 M/uL (4.10-5.30); WHITE BLOOD CELL COUNT,WBC 8.51 K/uL (3.9-11.3)
[2023-09-22] MEDS ORDERED: ePHEDrine 50 MG/ML SDV IVPUSH PRN ×2 (14:49)
[2023-09-22] MEDS ORDERED: Ropivacaine HCl/PF 400 MG in Premix Bag 1 BAG EPIDUR SCH (15:00)
[2023-09-23] MEDS ORDERED: fentaNYL 100 MCG/2 ML SDV ONE (00:28)
[2023-09-23] MEDS ORDERED: Lidocaine 2% with EPINEPHrine 1:200,000 20 ML SDV ONE (00:28)
[2023-09-23] MEDS ORDERED: Bupivacaine 0.25% 10 ML SDV ONE (00:28)
[2023-09-23] MEDS: Phenylephrine HCl 0.5 MG/5 ML AMP IVPUSH PRN ×5 (00:50→01:45)
[2023-09-23] MEDS ORDERED: Bisacodyl 10 MG Supp RECTAL PRN (02:39)
[2023-09-23] MEDS ORDERED: Acetaminophen 500 MG Tab PO PRN ×2 (02:39)
[2023-09-23] MEDS ORDERED: Docusate Sodium 100 MG Cap PO PRN (02:39)
[2023-09-23] MEDS ORDERED: Lanolin 100% Cream 7 GM Tube TOP PRN (02:39)
[2023-09-23] MEDS ORDERED: Benzocaine/Menthol 20%-0.5% Spray 78 GM Cannister TOP PRN (02:39)
[2023-09-23] MEDS ORDERED: Witch Hazel Medicated Pads 40/Jar TOP PRN (02:39)
[2023-09-23] MEDS ORDERED: Ibuprofen 400 MG Tab PO PRN (02:39)
[2023-09-23] MEDS: Ibuprofen 800 MG Tab PO PRN (18:01)
[2023-09-24 06:20] LABS: HEMATOCRIT 34.7 % (37.0-47.0)
[2023-09-24] MEDS: Ibuprofen 800 MG Tab PO PRN (16:14)
== END 2023-09-24 17:59 | disposition home or self-care (01) | DRG 807 ==
LOC: MW.OB 02:22 → OBSVTOIN 09-23 02:22 → MW.OB 09-23 09:38
PROVIDERS: ADMIT Obstetrics & Gynecology Obstetrics; ATTEND Obstetrics & Gynecology Obstetrics
PROC: 10E0XZZ Delivery of Products of Conception, External Approach (ICD-10-PCS; principal; 2023-09-23)
PROC: 3E0R3BZ Introduction of Anesthetic Agent into Spinal Canal, Percutaneous Approach (ICD-10-PCS; 2023-09-23)
PROC: 00HU33Z Insertion of Infusion Device into Spinal Canal, Percutaneous Approach (ICD-10-PCS; 2023-09-23)
DX: O48.0 Post-term pregnancy (principal); Z37.0 Single live birth; O69.81X0 Labor and delivery complicated by cord around neck, without compression, not applicable or unspecified; Z91.030 Bee allergy status; Z3A.40 40 weeks gestation of pregnancy
CPT/HCPCS: 36415; 59025; 59409; 85014; 85018; 85027; 86592; 86850; 86900; 86901; A9270-GY; J2371; J3010; J3490; J7120